=== PATIENT | female | born 2000 | race Caucasian/White ===

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

== ENCOUNTER 2019-01-17 08:49 | Emergency (ER) | payer MEDICAID ==
[~2019-01-17] VITALS: Ht 162.6 cm; Wt 87.0 kg
[~2019-01-17 08:49] MED LIST changes: +LITH600C PO
[2019-01-17 08:53] VITALS: BP 112/75
--- NOTE | 2019-01-17 09:11 | NUR ---
Pt presents with mother for multiple lacerations to L forearm. Pt states she has been quite stressed out and this is her coping. Pt denies SI or SA. Mother at bedside. Only request is wound care. Pt , due 02/13, no care. Pt states she has not been taking psych meds d/t .
[2019-01-17] MEDS ORDERED: DIPH,PERTUSS(ACELL),TET VAC/PF 0.5 ML IM-VACC ONE ×2 (10:00→10:18)
[2019-01-17] MEDS ORDERED: BACITRACIN ZINC OINT 500U/GM, 0.9 GM ONE (10:17)
== END 2019-01-17 11:16 | disposition home or self-care (01) ==
LOC: ED 10:42
DX: S51.812A Laceration without foreign body of left forearm, initial encounter (principal); F17.200 Nicotine dependence, unspecified, uncomplicated; X78.9XXA Intentional self-harm by unspecified sharp object, initial encounter; Y93.89 Activity, other specified; Y92.009 Unspecified place in unspecified non-institutional (private) residence as the place of occurrence of the external cause; Y99.8 Other external cause status
CPT/HCPCS: 90471; 90715

== ENCOUNTER 2019-07-04 06:55 | Emergency (ER) | payer MEDICAID, OTHER ==
[~2019-07-04] VITALS: Ht 162.6 cm; Wt 86.9 kg
[~2019-07-04 06:55] MED LIST changes: +HYDR-826 PO; -HYDR25TA11 PO
[2019-07-04 06:59] VITALS: BP 119/75
[2019-07-04] MEDS ORDERED: ETON68IM3 IL (07:32)
[2019-07-04 07:33] LABS: BASOPHILS # (AUTO) 0.01 x10^3/uL (0-0.3); BASOPHILS % (AUTO) 0 % (0-1); EOSINOPHILS # (AUTO) 0.04 x10^3/uL (0-0.8); EOSINOPHILS % (AUTO) 1 % (1-7); LYMPHOCYTES # (AUTO) 1.83 x10^3/uL (1-6.1); LYMPHOCYTES % (AUTO) 29 % (22-44); MD NO; MEAN CORPUSCULAR HEMOGLOBIN 32.4 pg (27.0-34.8); MEAN CORPUSCULAR HGB CONC 33.6 g/dL (32.4-35.8); MEAN CORPUSCULAR VOLUME 96.3 fL (80-100); MEAN PLATELET VOLUME 8.1 fL (7.4-10.4); MONOCYTES # (AUTO) 0.41 x10^3/uL (0-1.4); MONOCYTES % (AUTO) 7 % (2-9); NEUTROPHILS # (AUTO) 4.05 x10^3/uL (1.8-8.0); NEUTROPHILS % (AUTO) 64 % (42-75); PLATELET COUNT 196 x10^3/uL (130-400); RED BLOOD COUNT 4.87 x10^6/uL (3.82-5.3); RED CELL DISTRIBUTION WIDTH 12.6 % (9.6-15.2)
--- NOTE | 2019-07-04 07:38 | NUR ---
"I am having a month long period. Very uncomfortable." Denies being / NOT SEXUALLY ACTIVE. Going through 10 to 15 tampons a day. G0,P0 GOOD COLOR/VSS IMPLANT SITE NOT ERYTHEMATOUS
[2019-07-04 07:47] LABS: ALBUMIN 3.7 g/dL (3.4-5.0); ANION GAP 7 mmol/L (5-15); CALCIUM 8.5 mg/dL (8.5-10.1); CHLORIDE 108 mmol/L (98-107)
== END 2019-07-04 08:48 | disposition home or self-care (01) ==
LOC: ED 07:01
DX: N93.8 Other specified abnormal uterine and vaginal bleeding (principal); N92.4 Excessive bleeding in the premenopausal period
CPT/HCPCS: 36415; 80048; 82040; 84703; 85025; 99283

== ENCOUNTER 2019-12-02 18:02 | Emergency (ER) | payer MEDICAID ==
[~2019-12-02] VITALS: Ht 167.6 cm; Wt 70.0 kg
[~2019-12-02 18:02] MED LIST changes: +ETON68IM3 IL
[2019-12-02 18:15] VITALS: BP 121/86
--- NOTE | 2019-12-02 18:30 | NUR ---
PT PRESENT W SUPERFICIAL LACERATIONS TO LEFT FOREARM. PT STATES SHE CUT HERSELF FOR ATTENTION FROM HER BF AND STRESS. PT HAS HX OF CUTTING SELF. DENIES SI. 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 TECH TO CLEAN LACERATIONS, DERMABOND AND STERI STRIP
--- NOTE | 2019-12-02 19:21 | NUR ---
Patient/Caregiver given discharge instructions and they have confirmed that they understand the instructions. Patient ambulatory with steady gait.
== END 2019-12-02 19:25 | disposition home or self-care (01) ==
LOC: ED 19:10
DX: S51.812A Laceration without foreign body of left forearm, initial encounter (principal); F31.9 Bipolar disorder, unspecified; Z87.891 Personal history of nicotine dependence; X78.1XXA Intentional self-harm by knife, initial encounter; Y93.89 Activity, other specified; Y92.89 Other specified places as the place of occurrence of the external cause; Y99.8 Other external cause status
CPT/HCPCS: 99283